=== PATIENT | male | born 1995 | race Two or more races ===

== ENCOUNTER 2021-10-16 17:43 | Emergency (ER) | payer OTHER ==
[2021-10-16] MEDS ORDERED: NORCO 5-325 TA1 EACH PO (20:28)
[2021-10-16] MEDS ORDERED: VIBRAMYCIN100 MG PO (20:28)
== END 2021-10-16 21:02 | disposition home or self-care (01) ==
LOC: FER 17:43
DX: S81.811A Laceration without foreign body, right lower leg, initial encounter (principal); F17.210 Nicotine dependence, cigarettes, uncomplicated; Z28.310 Unvaccinated for COVID-19; Z23 Encounter for immunization; W17.89XA Other fall from one level to another, initial encounter; W45.8XXA Other foreign body or object entering through skin, initial encounter; Y92.89 Other specified places as the place of occurrence of the external cause; Y99.0 Civilian activity done for income or pay
CPT/HCPCS: 70450; 72125; 73590; 90471; 90715